=== PATIENT | female | born 1990 | race American Indian/Alaskan Native ===

== ENCOUNTER 2019-02-10 10:38 | Emergency (ER) | payer SELFPAY ==
--- NOTE | 2019-02-10 11:05 | Emergency Department Report ---
Chief Complaint: Sore Throat Stated Complaint: SORETHROAT Time Seen by Provider: 02/10/19 11:03 - HPI History of Present Illness: This is a 29 y.o. female that presents with sore throat and headache since this morning. - ROS Review of Systems: sore throat and headache - Exam Vital Signs: Vital Signs 02/10/19 11:02 Temperature 97.8 F Pulse Rate 83 Respiratory 20 Rate Blood Pressure 108/78 O2 Sat by Pulse 98 Oximetry MSE screening note: Focused history and physical exam performed. Due to findings the following was ordered: Rapid Strep ACC further evaluation. ED Disposition for MSE Condition: Stable
[2019-02-10] MEDS ORDERED: MOTRIN PO ONE (13:17)
[2019-02-10] MEDS ORDERED: ZOFRAN ODT PO ONE (13:17)
--- NOTE | 2019-02-10 13:22 | Emergency Department Report ---
ED ENT HPI - General Chief complaint: Sore Throat Stated complaint: SORETHROAT Time Seen by Provider: 02/10/19 11:03 Source: patient Mode of arrival: Ambulatory Limitations: No Limitations - History of Present Illness Initial comments: Ms. Rodas is a healthy 29 yo female who presents with scratchy throat, nonproductive cough, nasal drainage. MD complaint: sore throat, other (headache nasal congestion scratchy) -: Gradual, This morning Severity: mild, moderate Quality: dull Consistency: constant Worsens with: swallowing - Related Data Previous Rx's Medication Instructions Recorded Last Taken Type Amoxicillin 500 mg PO TID 7 Days #21 capsule 02/10/19 Unknown Rx Promethazine [Phenergan TAB] 25 mg PO Q6HR PRN #10 tab 02/10/19 Unknown Rx Allergies Allergy/AdvReac Type Severity Reaction Status Date / Time shellfish derived Allergy Swelling Verified 02/10/19 10:39 ED Dental HPI - General Chief complaint: Sore Throat Stated complaint: SORETHROAT Time Seen by Provider: 02/10/19 11:03 Source: patient Mode of arrival: Ambulatory Limitations: No Limitations - Related Data Previous Rx's Medication Instructions Recorded Last Taken Type Amoxicillin 500 mg PO TID 7 Days #21 capsule 02/10/19 Unknown Rx Promethazine [Phenergan TAB] 25 mg PO Q6HR PRN #10 tab 02/10/19 Unknown Rx Allergies Allergy/AdvReac Type Severity Reaction Status Date / Time shellfish derived Allergy Swelling Verified 02/10/19 10:39 ED Review of Systems ROS: Stated complaint: SORETHROAT Other details as noted in HPI Constitutional: malaise. denies: fever ENT: throat pain, congestion. denies: ear pain Respiratory: cough. denies: shortness of breath, wheezing Cardiovascular: denies: chest pain ED Past Medical Hx - Past Medical History Previous Medical History?: No - Surgical History Past Surgical History?: No - Social History Smoking Status: Never Smoker Substance Use Type: Alcohol - Medications Home Medications: Home Medications Medication Instructions Recorded Confirmed Last Taken Type Amoxicillin 500 mg PO TID 7 Days #21 capsule 02/10/19 Unknown Rx Promethazine [Phenergan TAB] 25 mg PO Q6HR PRN #10 tab 02/10/19 Unknown Rx ED Physical Exam - General Limitations: No Limitations General appearance: alert, in no apparent distress, other (raspy hoarse voice) - Head Head exam: Present: atraumatic, normocephalic - Eye Eye exam: Present: normal appearance. Absent: scleral icterus, conjunctival injection - ENT ENT exam: Present: normal exam, normal orophraynx, mucous membranes moist - Neck Neck exam: Present: normal inspection, full ROM. Absent: tenderness, meningismus - Respiratory Respiratory exam: Present: normal lung sounds bilaterally. Absent: respiratory distress, wheezes, rales, rhonchi - Neurological Exam Neurological exam: Present: alert, oriented X3 - Psychiatric Psychiatric exam: Present: normal affect, normal mood - Skin Skin exam: Present: warm, dry, intact, normal color ED Course Vital Signs 02/10/19 11:02 Temperature 97.8 F Pulse Rate 83 Respiratory 20 Rate Blood Pressure 108/78 O2 Sat by Pulse 98 Oximetry ED Medical Decision Making - Medical Decision Making Ms. Rodas does not have signs of acute pharyngitis or pneumonia. She has been vaccinated for influenza as an employee with [employer]. She understands that with hx of smoking tobacco, the risk of bacterial infection is higher. So, amoxicillin would be prudent to cover for potential strep throat or bacterial bronchitis. rx: promethazine, amoxicillin, rest Critical care attestation.: If time is entered above; I have spent that time in minutes in the direct care of this critically ill patient, excluding procedure time. ED Disposition Clinical Impression: Sore throat, Acute bronchitis Disposition: -01 TO HOME OR SELFCARE Is pt being admited?: No Does the pt Need Aspirin: No Condition: Stable Instructions: Acute Bronchitis (ED), Strep Throat (ED) Prescriptions: Amoxicillin 500 mg PO TID 7 Days #21 capsule Promethazine [Phenergan TAB] 25 mg PO Q6HR PRN #10 tab PRN Reason: Nausea Referrals: STEFANY GARZA MD [Staff Physician] - as needed Forms: Work/School Release Form(ED)
[2019-02-10 13:31] VITALS: BP 105/64
== END 2019-02-10 13:29 | disposition home or self-care (01) ==
LOC: ED 10:38
DX: J20.9 Acute bronchitis, unspecified (principal); J02.9 Acute pharyngitis, unspecified; Z91.013 Allergy to seafood
CPT/HCPCS: 87116; 87430; 99283; Q0162